=== PATIENT | male | born 1955 | race African-American/Black ===

== ENCOUNTER 2016-07-23 10:55 | Inpatient (IN) | payer OTHER ==
[2016-07-23 12:07] VITALS: BMI 32.1
--- NOTE | 2016-07-23 14:11 | HP ---
CIWA Score - CIWA Score Nausea/Vomitin-No Nausea/No Vomiting Muscle Tremors: 4-Moderate,w/Arms Extend Anxiety: 3 Agitation: 4-Moderately Restless Paroxysmal Sweats: 3 Orientation: 0-Oriented Tacttile Disturbances: 0-None Auditory Disturbances: 0-None Visual Disturbances: 0-None Headache: 0-None Present CIWA-Ar Total Score: 14 Admission ROS BHS - HPI Chief Complaint: I need to detox. Allergies/Adverse Reactions: Allergies Allergy/AdvReac Type Severity Reaction Status Date / Time No Known Allergies Allergy Verified 07/23/16 12:40 History of Present Illness: Pt is a 60yr old male with a history of alcohol dependence seeking detox for treatment. Exam Limitations: No Limitations - Ebola screening Have you traveled outside of the country in the last 21 days: No Have you had contact with anyone from an Ebola affected area: No Have you been sick,other than usual withdrawal symptoms: No Do you have a fever: No - Review of Systems Constitutional: Chills, Loss of Appetite, Night Sweats, Changes in sleep EENT: reports: No Symptoms Reported Respiratory: reports: No Symptoms reported Cardiac: reports: No Symptoms Reported GI: reports: Poor Appetite, Poor Fluid Intake, Indigestion : reports: No Symptoms Reported Musculoskeletal: reports: No Symptoms Reported Integumentary: reports: Flushing, Sweating Neuro: reports: Tingling, Tremors Endocrine: reports: Excessive Sweating, Flushing, Intolerance to Cold, Intolerance to Heat Hematology: reports: No Symptoms Reported Psychiatric: reports: Judgement Intact, Orientated x3, Agitated, Anxious Other Systems: Reviewed and Negative Patient History - Patient Medical History Hx Anemia: No Hx Asthma: No Hx Chronic Obstructive Pulmonary Disease (COPD): No Hx Cancer: No Hx Cardiac Disorders: No Hx Congestive Heart Failure: No Hx Hypertension: Yes Hx Hypercholesterolemia: No Hx Pacemaker: No HX Cerebrovascular Accident: No Hx Seizures: No Hx Dementia: No Hx Diabetes: No Hx Gastrointestinal Disorders: Yes (acid reflux) Hx Liver Disease: No Hx Genitourinary Disorders: No Hx Sexually Transmitted Disorders: No Hx Renal Disease (ESRD): No Hx Thyroid Disease: No Hx Human Immunodeficiency Virus (HIV): No Hx Hepatitis C: No Hx Depression: Yes Hx Suicide Attempt: No (denies) Hx Bipolar Disorder: No Hx Schizophrenia: Yes - Patient Surgical History Past Surgical History: Yes Other Surgical History: incision and drainage of abscess of left upper posterior chest wall - PPD History Previous Implant?: Yes Documented Results: Negative w/o proof Implanted On Prior [facility] Admission?: Yes PPD to be Administered?: Yes - Reproductive History Patient is a Female of Child Bearing Age (11 -55 yrs old): No - Smoking Cessation Smoking history: Former smoker Have you smoked in the past 12 months: No If you are a former smoker, when did you quit?: 25 yrs. ago Hx Chewing Tobacco Use: No Initiated information on smoking cessation: No - Substance & Tx. History Hx Alcohol Use: Yes Hx Substance Use: Yes Substance Use Type: Alcohol, Cocaine Hx Substance Use Treatment: Yes - Substances Abused Crack Route: Smoking Frequency: 1-2 times per week Amount used: $100 Age of first use: 37 Date of Last Use: 07/23/16 Alcohol-beer Route: Oral Frequency: Daily Amount used: 1-6 pk. Age of first use: 14 Date of Last Use: 07/23/16 Family Disease History - Family Disease History Family History: Denies Admission Physical Exam [facility] - Vital Signs Vital Signs: Vital Signs - 24 hr 07/23/16 11:51 Temperature 97.3 F L Pulse Rate 89 Respiratory 18 Rate Blood Pressure 132/80 - Physical General Appearance: Yes: Appropriately Dressed, Moderate Distress, Tremorous, Irritable, Sweating, Anxious HEENTM: Yes: Normal Voice Respiratory: Yes: Lungs Clear, Normal Breath Sounds, No Respiratory Distress Neck: Yes: Within Normal Limits Breast: Yes: Within Normal Limits Cardiology: Yes: Regular Rhythm, Regular Rate, S1, S2 Abdominal: Yes: Normal Bowel Sounds, Non Tender, Soft Genitourinary: Yes: Within Normal Limits Back: Yes: Normal Inspection Musculoskeletal: Yes: full range of Motion Extremities: Yes: Normal Capillary Refill, Normal Inspection, Tremors Neurological: Yes: Fully Oriented, Alert, Normal Response Integumentary: Yes: Normal Color, Diaphoresis Lymphatic: Yes: Within Normal Limits - Diagnostic (1) Alcohol dependence with uncomplicated withdrawal Current Visit: Yes Status: Chronic (2) Crack cocaine use Current Visit: Yes Status: Chronic Cleared for Admission [facility] - Detox or Rehab [facility] Level of Care: Medically Managed Detox Regimen/Protocol: Librium [facility] Breath Alcohol Content Breath Alcohol Content: 0 Urine Drug Screen - Results Drug Screen Negative: No Urine Drug Screen Results: MARTA-Cocaine, TCA-Tricyclic Antidepress
[2016-07-23] MEDS ORDERED: IBUPROFEN 400 MG TABLET (FP) PO PRN (14:13)
[2016-07-23] MEDS ORDERED: ACETAMINOPHEN 325 MG TABLET (FP) PO PRN (14:13)
[2016-07-23] MEDS ORDERED: hydrOXYzine PAMOATE 50 MG CAPSULE (FP) PO PRN (14:13)
[2016-07-23] MEDS ORDERED: MAG HYDROX/AL HYDROX/SIMETH 30 ML UNIT-DOSE CUP PO PRN (14:13)
[2016-07-23] MEDS ORDERED: guaiFENesin/D-METHORPHAN HB 10 ML UNIT-DOSE CUPS PO PRN (14:13)
[2016-07-23] MEDS ORDERED: P-EPHED 60MG/TRIPROLIDI 2.5MG TABLET PO PRN (14:13)
[2016-07-23] MEDS ORDERED: MAGNESIUM HYDROX 2400MG/30ML ORAL SUSPENSION 30 ML CUP PO PRN (14:13)
[2016-07-23] MEDS ORDERED: chlordiazePOXIDE HCL 25 MG CAPSULE PO PRN (14:13)
[2016-07-23] MEDS ORDERED: MENTHOL/PHENOL 1 EACH UD MM PRN (14:13)
[2016-07-23] MEDS ORDERED: MAGNESIUM CITRATE 300 ML BOTTLE PO PRN (14:13)
[2016-07-23] MEDS ORDERED: chlordiazePOXIDE HCL 25 MG CAPSULE PO ONE (14:57)
[2016-07-23] MEDS: chlordiazePOXIDE HCL 25 MG CAPSULE PO SCH ×2 (17:16→22:08)
[2016-07-23 18:16] LABS: URINE APPEARANCE CLEAR; URINE BILIRUBIN NEGATIVE (NEGATIVE); URINE BLOOD NEGATIVE (NEGATIVE); URINE COLOR YELLOW; URINE GLUCOSE (UA) NEGATIVE (NEGATIVE); URINE KETONE 1+ (NEGATIVE); URINE LEUK ESTERASE NEGATIVE (NEGATIVE); URINE NITRITE NEGATIVE (NEGATIVE); URINE PROTEIN NEGATIVE (NEGATIVE); URINE UROBILINOGEN NEGATIVE E.U./dl (0.2-1.0)
[2016-07-23] MEDS: THIAMINE HCL 100 MG TABLET (FP) PO SCH (22:07)
[2016-07-23] MEDS: ATORVASTATIN CA 40 MG TABLET (FP) PO SCH (22:08)
[2016-07-23] MEDS: diphenhydrAMINE HCL 50 MG CAPSULE PO PRN (22:08)
[2016-07-24] MEDS: chlordiazePOXIDE HCL 25 MG CAPSULE PO SCH ×4 (05:54→22:03)
[2016-07-24] MEDS: LOPERAMIDE HCL 2 MG CAPSULE PO PRN ×3 (05:54→18:31)
[2016-07-24] MEDS: PANTOPRAZOLE 40 MG TABLET (FP) PO SCH (10:14)
[2016-07-24] MEDS: PRENATAL VITAMINS W/ FOLIC ACID TABLET (FP) PO SCH (10:14)
[2016-07-24] MEDS: ASPIRIN 81 MG CHEWABLE TABLETS PO SCH (10:14)
[2016-07-24 10:33] LABS: ALBUMIN 4.1 g/dl (3.4-5.0); BILIRUBIN,TOTAL 0.7 mg/dL (0.2-1.0); CALCIUM 9.6 mg/dL (8.5-10.1); CREATININE 1.4 mg/dL (0.7-1.3)
[2016-07-24 10:39] LABS: MCH 29.5 pg (25.7-33.7); MCHC 32.9 g/dl (32.0-35.9); MEAN CELL VOLUME 89.6 fl (80-96); MEAN PLT VOLUME 9.7 fl (7.5-11.1); PLATELET COUNT 194 K/MM3 (134-434); RDW 19.3 % (11.9-15.9); WHITE BLOOD COUNT 5.8 K/mm3 (4.0-10.0)
[2016-07-24] MEDS: ATENOLOL 50 MG TABLET (FP) PO SCH (11:04)
[2016-07-24] MEDS: LISINOPRIL 10 MG TABLET (FP) PO SCH (11:04)
--- NOTE | 2016-07-24 11:45 | CONSULT ---
[facility] Psychiatric Consult - Data Date of interview: 07/24/16 Admission source: [facility] Identifying data: First admission to [facility] for this 60 y/o A male seeking detox treatment for alcohol and cocaine (crack) dependence.Patient is single without children,homeless,unemployed and supported on SSI benefits. Substance Abuse History: Smoking Cessation. Smoking history: Former smoker. Have you smoked in the past 12 months: No. If you are a former smoker, when did you quit?: 25 yrs. ago. Hx Chewing Tobacco Use: No. Initiated information on smoking cessation: No. - Substance & Tx. History. Hx Alcohol Use: Yes. Hx Substance Use: Yes. Substance Use Type: Alcohol, Cocaine. Hx Substance Use Treatment: Yes. - Substances Abused. Crack. Route: Smoking. Frequency: 1- 2 times per week. Amount used: $100. Age of first use: 37. Date of Last Use: 07/23/16. Alcohol-beer. Route: Oral. Frequency: Daily. Amount used: 1-6 pk. Age of first use: 14. Date of Last Use: 07/23/16. Confirmed by patient. Medical History: Diabetes mellitus,hypercholesterolemia,GERD and hypertension. Psychiatric History: Patient denies. Physical/Sexual Abuse/Trauma History: Patient denies. Additional Comment: Urine Drug Screen Results: MARTA-Cocaine, TCA-Tricyclic Antidepressant.Noted. Mental Status Exam - Mental Status Exam Alert and Oriented to: Time, Place, Person Cognitive Function: Good Patient Appearance: Well Groomed Mood: Hopeful, Euthymic Affect: Appropriate, Normal Range Patient Behavior: Fatigued, Appropriate, Cooperative Speech Pattern: Clear Voice Loudness: Normal Thought Process: Goal Oriented Thought Disorder: Not Present Hallucinations: Denies Suicidal Ideation: Denies Homicidal Ideation: Denies Insight/Judgement: Poor Sleep: Fair (on benadryl at bedtime) Appetite: Good Muscle strength/Tone: Normal Gait/Station: Normal Psychiatric Findings - Problem List ([place] 1, 2,3) (1) Alcohol dependence with uncomplicated withdrawal Current Visit: Yes Status: Acute (2) Cocaine dependence Current Visit: Yes Status: Acute (3) DM Diabetes mellitus type 1 Current Visit: Yes Status: Chronic - Initial Treatment Plan Initial Treatment Plan: Psychoeducation.Detoxification.Observation.
--- NOTE | 2016-07-24 12:18 | PN ---
S CIWA - CIWA Score Nausea/Vomitin (and diarrhea) Muscle Tremors: 4-Moderate,w/Arms Extend Anxiety: 4-Mod. Anxious/Guarded Agitation: 4-Moderately Restless Paroxysmal Sweats: 3 Orientation: 0-Oriented Tacttile Disturbances: 0-None Auditory Disturbances: 0-None Visual Disturbances: 0-None Headache: 0-None Present CIWA-Ar Total Score: 17 BHS Progress Note (SOAP) Subjective: Sweating,interrupted sleep,restless,tremors,anxiety Objective: 07/24/16 12:17 Vital Signs - 8 hr 07/24/16 07/24/16 06:30 09:11 Temperature 98.7 F 97.1 F L Pulse Rate 116 H 64 Respiratory 16 18 Rate Blood Pressure 116/86 115/90 Laboratory Tests 07/23/16 07/23/16 07/24/16 12:57 14:00 06:00 WBC 5.8 RBC 4.26 Hgb 12.5 Hct 38.2 MCV 89.6 MCHC 32.9 RDW 19.3 H D Plt Count 194 D MPV 9.7 Sodium Potassium Chloride Carbon Dioxide Anion Gap BUN Creatinine Creat Clearance w eGFR POC Glucometer 105 Random Glucose Calcium Total Bilirubin AST ALT Alkaline Phosphatase Total Protein Albumin Urine Color Yellow Urine Appearance Clear Urine pH 5.0 Ur Specific [place] 1.023 Urine Protein Negative Urine Glucose (UA) Negative Urine Ketones 1+ H Urine Blood Negative Urine Nitrite Negative Urine Bilirubin Negative Urine Urobilinogen Negative Ur Leukocyte Esterase Negative RPR Titer 07/24/16 07/24/16 06:00 06:00 WBC RBC Hgb Hct MCV MCHC RDW Plt Count MPV Sodium 141 Potassium 4.3 Chloride 103 Carbon Dioxide 28 Anion Gap 10 BUN 19 H D Creatinine 1.4 H Creat Clearance w eGFR 51.52 POC Glucometer Random Glucose 96 Calcium 9.6 Total Bilirubin 0.7 D AST 17 ALT 22 D Alkaline Phosphatase 92 D Total Protein 7.0 Albumin 4.1 Urine Color Urine Appearance Urine pH Ur Specific [place] Urine Protein Urine Glucose (UA) Urine Ketones Urine Blood Urine Nitrite Urine Bilirubin Urine Urobilinogen Ur Leukocyte Esterase RPR Titer Nonreactive labs noted Assessment: 07/24/16 12:17 Withdrawal sx. Plan: Continue detox
--- NOTE | 2016-07-24 13:11 | EKG ---
Test Reason : Blood Pressure : / mmHG Vent. Rate : 090 BPM Atrial Rate : 090 BPM P-R Int : 162 ms QRS Dur : 082 ms QT Int : 348 ms P-R-T Axes : 052 040 040 degrees QTc Int : 425 ms NORMAL SINUS RHYTHM NORMAL ECG WHEN COMPARED WITH ECG OF 23-JUL-2016 15:00, SINUS RHYTHM HAS REPLACED ECTOPIC ATRIAL RHYTHM QRS AXIS SHIFTED LEFT Confirmed by KRISTEN STRICKLAND, MINESH ([id number]) on 07/24/2016 1:10:35 PM Referred By: Confirmed By:MINESH PETERSON MD
--- NOTE | 2016-07-24 13:23 | EKG ---
Test Reason : Blood Pressure : / mmHG Vent. Rate : 081 BPM Atrial Rate : 081 BPM P-R Int : 172 ms QRS Dur : 078 ms QT Int : 362 ms P-R-T Axes : 148 146 144 degrees QTc Int : 420 ms SUSPECT ARM LEAD REVERSAL, INTERPRETATION ASSUMES NO REVERSAL UNUSUAL P AXIS, POSSIBLE ECTOPIC ATRIAL RHYTHM RIGHT AXIS DEVIATION ABNORMAL ECG NO PREVIOUS ECGS AVAILABLE Confirmed by KRISTEN STRICKLAND, MINESH ([id number]) on 07/24/2016 1:22:48 PM Referred By: Confirmed By:MINESH PETERSON MD
[2016-07-24] MEDS: ATORVASTATIN CA 40 MG TABLET (FP) PO SCH (22:02)
[2016-07-24] MEDS: THIAMINE HCL 100 MG TABLET (FP) PO SCH (22:02)
[2016-07-24] MEDS: diphenhydrAMINE HCL 50 MG CAPSULE PO PRN (22:02)
[2016-07-25] MEDS: chlordiazePOXIDE HCL 25 MG CAPSULE PO SCH ×2 (05:42→10:10)
[2016-07-25] MEDS: LOPERAMIDE HCL 2 MG CAPSULE PO PRN ×3 (05:43→19:51)
[2016-07-25] MEDS: PRENATAL VITAMINS W/ FOLIC ACID TABLET (FP) PO SCH (10:10)
[2016-07-25] MEDS: PANTOPRAZOLE 40 MG TABLET (FP) PO SCH (10:10)
[2016-07-25] MEDS: ATENOLOL 50 MG TABLET (FP) PO SCH (10:10)
[2016-07-25] MEDS: LISINOPRIL 10 MG TABLET (FP) PO SCH (10:10)
[2016-07-25] MEDS: ASPIRIN 81 MG CHEWABLE TABLETS PO SCH (10:10)
--- NOTE | 2016-07-25 11:22 | PN ---
[facility] CIWA - CIWA Score Nausea/Vomitin-No Nausea/No Vomiting Muscle Tremors: 3 Anxiety: 3 Agitation: 2 Paroxysmal Sweats: 3 Orientation: 0-Oriented Tacttile Disturbances: 0-None Auditory Disturbances: 0-None Visual Disturbances: 0-None Headache: 0-None Present CIWA-Ar Total Score: 11 S Progress Note (SOAP) Subjective: Sweating,interrupted sleep,anxiety,tremors,restless Objective: 07/25/16 11:21 Vital Signs - 8 hr 07/25/16 07/25/16 06:17 09:22 Temperature 98.4 F 97.9 F Pulse Rate 61 65 Respiratory 18 18 Rate Blood Pressure 108/73 110/74 Laboratory Tests 07/23/16 07/23/16 07/24/16 12:57 14:00 06:00 WBC 5.8 RBC 4.26 Hgb 12.5 Hct 38.2 MCV 89.6 MCHC 32.9 RDW 19.3 H D Plt Count 194 D MPV 9.7 Sodium Potassium Chloride Carbon Dioxide Anion Gap BUN Creatinine Creat Clearance w eGFR POC Glucometer 105 Random Glucose Calcium Total Bilirubin AST ALT Alkaline Phosphatase Total Protein Albumin Urine Color Yellow Urine Appearance Clear Urine pH 5.0 Ur Specific [place] 1.023 Urine Protein Negative Urine Glucose (UA) Negative Urine Ketones 1+ H Urine Blood Negative Urine Nitrite Negative Urine Bilirubin Negative Urine Urobilinogen Negative Ur Leukocyte Esterase Negative RPR Titer 07/24/16 07/24/16 06:00 06:00 WBC RBC Hgb Hct MCV MCHC RDW Plt Count MPV Sodium 141 Potassium 4.3 Chloride 103 Carbon Dioxide 28 Anion Gap 10 BUN 19 H D Creatinine 1.4 H Creat Clearance w eGFR 51.52 POC Glucometer Random Glucose 96 Calcium 9.6 Total Bilirubin 0.7 D AST 17 ALT 22 D Alkaline Phosphatase 92 D Total Protein 7.0 Albumin 4.1 Urine Color Urine Appearance Urine pH Ur Specific [place] Urine Protein Urine Glucose (UA) Urine Ketones Urine Blood Urine Nitrite Urine Bilirubin Urine Urobilinogen Ur Leukocyte Esterase RPR Titer Nonreactive labs noted Assessment: 07/25/16 11:21 Withdrawal sx. Plan: Continue detox
[2016-07-25] MEDS: chlordiazePOXIDE 5 MG CAPSULE PO SCH ×2 (17:15→22:13)
[2016-07-25] MEDS: THIAMINE HCL 100 MG TABLET (FP) PO SCH (22:13)
[2016-07-25] MEDS: ATORVASTATIN CA 40 MG TABLET (FP) PO SCH (22:13)
[2016-07-25] MEDS: diphenhydrAMINE HCL 50 MG CAPSULE PO PRN (22:13)
[2016-07-26] MEDS: chlordiazePOXIDE 5 MG CAPSULE PO SCH ×2 (05:55→10:20)
[2016-07-26] MEDS: PRENATAL VITAMINS W/ FOLIC ACID TABLET (FP) PO SCH (10:20)
[2016-07-26] MEDS: PANTOPRAZOLE 40 MG TABLET (FP) PO SCH (10:20)
[2016-07-26] MEDS: ATENOLOL 50 MG TABLET (FP) PO SCH (10:20)
[2016-07-26] MEDS: LISINOPRIL 10 MG TABLET (FP) PO SCH (10:20)
[2016-07-26] MEDS: ASPIRIN 81 MG CHEWABLE TABLETS PO SCH (10:20)
[2016-07-26] MEDS: LOPERAMIDE HCL 2 MG CAPSULE PO PRN ×2 (10:21→22:06)
--- NOTE | 2016-07-26 11:23 | PN ---
BHS Progress Note (SOAP) Subjective: ANXIETY,SWEATS,DIARRHEA. Objective: 07/26/16 11:22 Vital Signs Temperature 96.5 F L 07/26/16 10:29 Pulse Rate 65 07/26/16 10:29 Respiratory Rate 16 07/26/16 10:29 Blood Pressure 115/83 07/26/16 10:29 O2 Sat by Pulse Oximetry (%) Assessment: 07/26/16 11:22 WITHDRAWAL SX Plan: CONTINUE DETOX
[2016-07-26] MEDS: chlordiazePOXIDE HCL 10 MG CAPSULE PO SCH ×2 (17:16→22:04)
[2016-07-26] MEDS: ATORVASTATIN CA 40 MG TABLET (FP) PO SCH (22:04)
[2016-07-26] MEDS: THIAMINE HCL 100 MG TABLET (FP) PO SCH (22:04)
[2016-07-27] MEDS: chlordiazePOXIDE HCL 10 MG CAPSULE PO SCH (05:43)
[2016-07-27 06:40] VITALS: PULSE 68
[2016-07-27 10:51] VITALS: BP 130/87; TEMP 96.8
--- NOTE | 2016-07-27 15:59 | DS ---
[facility] Detox Discharge Summary Admission Date: 07/23/16 Discharge Date: 07/27/16 - History Present History: Alcohol Dependence, Cocaine Dependence Additional Comments: ADVISED PATIENT TO FOLLOW-UP WITH [facility] / REHAB MEDICAL PROVIDER AFTER DISCHARGE FROM DETOX FOR GENERAL MEDICAL ASSESSMENT AND FOR ABNORMAL LAB VALUES. Pertinent Past History: HTN, GERD, Depression. - Physical Exam Results Vital Signs: Vital Signs Temperature 96.8 F L 07/27/16 10:50 Pulse Rate 68 07/27/16 10:50 Respiratory Rate 18 07/27/16 10:50 Blood Pressure 130/87 07/27/16 10:50 O2 Sat by Pulse Oximetry (%) Pertinent Admission Physical Exam Findings: WITHDRAWAL SYMPTOMS. Laboratory Last Values WBC 5.8 K/mm3 (4.0-10.0) 07/24/16 06:00 RBC 4.26 M/mm3 (4.00-5.60) 07/24/16 06:00 Hgb 12.5 GM/dL (11.7-16.9) 07/24/16 06:00 Hct 38.2 % (35.4-49) 07/24/16 06:00 MCV 89.6 fl (80-96) 07/24/16 06:00 MCHC 32.9 g/dl (32.0-35.9) 07/24/16 06:00 RDW 19.3 % (11.9-15.9) H D 07/24/16 06:00 Plt Count 194 K/MM3 (134-434) D 07/24/16 06:00 MPV 9.7 fl (7.5-11.1) 07/24/16 06:00 Sodium 141 mmol/L (136-145) 07/24/16 06:00 Potassium 4.3 mmol/L (3.5-5.1) 07/24/16 06:00 Chloride 103 mmol/L (98-107) 07/24/16 06:00 Carbon Dioxide 28 mmol/L (21-32) 07/24/16 06:00 Anion Gap 10 (8-16) 07/24/16 06:00 BUN 19 mg/dL (7-18) H D 07/24/16 06:00 Creatinine 1.4 mg/dL (0.7-1.3) H 07/24/16 06:00 Creat Clearance w eGFR 51.52 (>60) 07/24/16 06:00 POC Glucometer 105 UNITS (()) 07/23/16 12:57 Random Glucose 96 mg/dL (74-106) 07/24/16 06:00 Calcium 9.6 mg/dL (8.5-10.1) 07/24/16 06:00 Total Bilirubin 0.7 mg/dL (0.2-1.0) D 07/24/16 06:00 AST 17 U/L (15-37) 07/24/16 06:00 ALT 22 U/L (12-78) D 07/24/16 06:00 Alkaline Phosphatase 92 U/L (45-117) D 07/24/16 06:00 Total Protein 7.0 g/dl (6.4-8.2) 07/24/16 06:00 Albumin 4.1 g/dl (3.4-5.0) 07/24/16 06:00 Urine Color Yellow 07/23/16 14:00 Urine Appearance Clear 07/23/16 14:00 Urine pH 5.0 (5.0-8.0) 07/23/16 14:00 Ur Specific [place] 1.023 (1.001-1.035) 07/23/16 14:00 Urine Protein Negative (NEGATIVE) 07/23/16 14:00 Urine Glucose (UA) Negative (NEGATIVE) 07/23/16 14:00 Urine Ketones 1+ (NEGATIVE) H 07/23/16 14:00 Urine Blood Negative (NEGATIVE) 07/23/16 14:00 Urine Nitrite Negative (NEGATIVE) 07/23/16 14:00 Urine Bilirubin Negative (NEGATIVE) 07/23/16 14:00 Urine Urobilinogen Negative E.U./dl (0.2-1.0) 07/23/16 14:00 Ur Leukocyte Esterase Negative (NEGATIVE) 07/23/16 14:00 RPR Titer Nonreactive (NONREACTIVE) 07/24/16 06:00 LABS NOTED. - Treatment Hospital Course: Detox Protocol Followed, Detoxed Safely, Responded well, Discharged Condition Good Patient has Accepted a Rehab Referral to: NO- PT. ELECTING TO GO HOME AT THIS TIME; AA/12-STEP PROGRAMS RECOMMENDED. - Medication Discharge Medications: Ambulatory Orders Aspirin [ASA -] 81 mg PO DAILY 09/26/11 Atenolol 50 mg PO DAILY 09/26/11 Lisinopril [Prinivil] 10 mg PO DAILY 09/26/11 Trazodone HCl 50 mg PO HS 09/26/11 Atorvastatin Ca [Lipitor] 40 mg PO HS #0 tablet 10/24/11 Pantoprazole Sodium [Protonix -] 40 mg PO DAILY #0 tablet.ec 10/24/11 - Diagnosis (1) Alcohol dependence with uncomplicated withdrawal Status: Acute (2) Crack cocaine use Status: Acute - AMA Did Patient Leave Against Medical Advice: No
== END 2016-07-27 09:18 | disposition home or self-care (01) | DRG 774 ==
LOC: YASAS 10:55 → Y3N 14:48
PROVIDERS: ADMIT Internal Medicine; ATTEND Internal Medicine
PROC: HZ2ZZZZ Detoxification Services for Substance Abuse Treatment (ICD-10-PCS; principal; 2016-07-27)
DX: F10.230 Alcohol dependence with withdrawal, uncomplicated (principal); F14.20 Cocaine dependence, uncomplicated; I10 Essential (primary) hypertension; E10.9 Type 1 diabetes mellitus without complications; Z79.4 Long term (current) use of insulin; K21.9 Gastro-esophageal reflux disease without esophagitis; F32.9 Major depressive disorder, single episode, unspecified
CPT/HCPCS: 36415; 80053; 81003; 85027; 86593; 93005; 93010